=== PATIENT | female | born 1950 | race Caucasian/White ===

== ENCOUNTER → 2024-01-09 06:36 | Day surgery (SDC) | payer MEDICARE, SELFPAY | LOC: GI 06:36 | PROVIDERS: ATTENDING PHYSICIAN Specialist; FAMILY PHYSICIAN Family Medicine | DX: D12.3 Benign neoplasm of transverse colon (principal); R19.5 Other fecal abnormalities; K57.30 Diverticulosis of large intestine without perforation or abscess without bleeding | CPT/HCPCS: 45385; 88305 ==

== ENCOUNTER → 2024-06-08 09:46 | Outpatient (REF) | payer MEDICARE, SELFPAY | LOC: HWWDC 09:46 | PROVIDERS: ATTENDING PHYSICIAN Family Medicine; REFERRING PHYSICIAN Obstetrics & Gynecology | DX: Z12.31 Encounter for screening mammogram for malignant neoplasm of breast (principal) | CPT/HCPCS: 77063; 77067 ==

== ENCOUNTER → 2024-06-16 09:28 | Outpatient (REF) | payer MEDICARE, SELFPAY | LOC: RST 09:28 | PROVIDERS: ATTENDING PHYSICIAN Family Medicine | DX: R13.10 Dysphagia, unspecified (principal) | CPT/HCPCS: 74230; 92611 ==

== ENCOUNTER 2025-04-16 06:35 | Emergency (ER) | payer MEDICARE, SELFPAY ==
[2025-04-16 06:37] VITALS: BP 149/88
[2025-04-16 07:34] VITALS: BP 150/86
--- NOTE | 2025-04-16 07:37 | ED.GENMED ---
History of Present Illness
General
Chief Complaint: Musculo-Skeletal Complaint
Source: patient
Time Seen by Provider: 04/16/25 07:07
History of Present Illness
History of Present Illness:
74-year-old female with past medical history of hypertension and osteoarthritis/rheumatoid arthritis presenting to the emergency department for evaluation of approximately 1 week of gradually worsening right shoulder/neck pain described to be a
waxing and waning sharp stabbing pain lasting only a few seconds, seemingly worse with movement or laying on her right side, somewhat relieved when sitting still and sitting upright, worse yesterday which is what ultimately prompted her to come to
the ER this morning. Patient states that she takes daily diclofenac as part of her treatment plan for her arthritis but states due to mild chronic kidney disease she is not able to take any other anti-inflammatory medications at this time. She
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 She denies any
fevers, chills, rigors focal weakness or numbness, chest pain or shortness of breath or any other concerns presently.
Past History
Past History
ED Past Medical History: HTN, Psychiatric and Other (OA/RA)
ED Past Surgical History: Gynecological and Other (hysterectomy)
Social History
Tobacco: Non-smoker
Alcohol: None
Drug: None
Personal: Single
Living: alone
Review of Systems
Review of Systems
All Other Systems: ROS reviewed and negative except as documented in HPI and ROS
Phy Exam
Physical Exam
Physical Exam:
GENERAL: Alert , in no apparent distress at rest however will intermittently have the sharp pain while taking history from the patient causing her significant discomfort
EYE: conjunctiva clear
Head: Normocephalic atraumatic
NECK: Supple, no focal midline tenderness and patient did report some relief with palpation of the right trapezius muscle. Full range of motion however she did have some discomfort with right lateral rotation and right lateral bend
ENT: mmm.
LUNGS: no acute respiratory distress
NEUROLOGICAL: Alert and oriented
SKIN: Warm and dry, skin intact. No overlying rash
MUSCULOSKELETAL: well perfused. Full range of motion of the right shoulder, elbow, wrist and digits. Intact and equal radial pulse. Sensation grossly intact to light touch.
PSYCH: Normal and appropriate interaction.
Scores
Heart Failure Risk
Heart Failure Risk Score: Not Applicable
Heart Score for Chest Pain Patients
STEMI patient?: Not applicable
Withdrawal Assessment of Alcohol
Withdrawal Assessment Completed?: Not applicable
Course
Orders/Labs/Results
Orders:
Orders
04/16/25 07:33
CR Cervical Spine 4 Or 5 Vw Urgent
Comment:
Reason For Exam: pain
CR Shoulder - Right Min 2 View Urgent
Comment:
Reason For Exam: pain
Vital Signs
Initial and Last Documented VS:
Initial Vital Signs
Temp Pulse Resp BP Pulse Ox
97.9 F 65 16 149/88 94
04/16/25 06:37 04/16/25 06:37 04/16/25 06:37 04/16/25 06:37 04/16/25 06:37
Last Documented Vital Signs
Temp Pulse Resp BP Pulse Ox
97.9 F 65 15 150/86 95
04/16/25 06:37 04/16/25 07:34 04/16/25 07:34 04/16/25 07:34 04/16/25 07:44
MDM/Problems Addressed
Differential Diagnosis Includes:
Cervical radiculopathy
Shoulder impingement syndrome
Rotator cuff injury
Tendinitis
Brachial plexus injury
Less concern for fracture given no trauma
Overuse injury
Based off history and physical exam I am less concerned for any ACS/PE/dissection
MDM/Problems Addressed:
74-year-old female with past medical history of OA/RA presenting to the ER for right upper extremity pain gradually worsening over the last week, worse yesterday into today. Exam reveals more of a spasmodic nature to the pain. Patient had
ultimately hoped for more advanced imaging but given lack of focal neuro findings, no indication for emergent MRI. Patient expressed understanding. Will obtain XR imaging of the c-spine and right shoulder. Discussed pain management including
steroid taper and muscle relaxer to which patient is in agreement with. Would likely need outpatient follow-up with Ortho and will refer patient to [facility] orth[facility] as she has family member who has seen them in the past. Anticipate
discharge home.
*Radiology
Radiology exam reviewed: preliminary read by ED provider (Mild degenerative changes)
*Pulse Oximetry
SaO2: 95
Oxygen Mode of Delivery: Room air
Patient hypoxic: no
*Critical Care Note
Total Time (30-74mins, 75-104mins- exclusive of procedures): Not Applicable
Patient Management
Escalation/DeEscalation of care consider admission/obs:
Patient stable for discharge home aware of return precautions to the ER. Prescription for Medrol Dosepak and muscle relaxant provided. Patient will follow-up with outpatient orthopedics as needed.
ED Attending Note
-
Portions of this chart may have been created with voice recognition software.� Occasional wrong word or��sound alike� substitutions may have occurred due to the inherent limitations of voice recognition software.
Discharge Plan
Departure
Patient Disposition: Home (Routine Discharge)
Date of Disposition: 04/16/25
Time of Disposition: 08:09
Patient with high blood pressure during this ER visit?: Yes
Discharge Problem:
Radiculopathy affecting upper extremity
Instructions: Radiculopathy of the neck and back (including sciatica) - Discharge instruc
Prescriptions:
New
methylprednisolone [Medrol (Bharathi)] 4 mg tablets,dose pack
4 mg PO DIRECTED Qty: 21 0RF
diazepam [Valium] 5 mg tablet
5 mg PO BID PRN (Reason: muscle spasm) Qty: 8 0RF
No Action
omeprazole 40 MG capsule,delayed release(DR/EC)
40 mg PO DAILY Qty: 14 0RF
Referrals:
Burton Crockett MD [Active, Orthopedics]
Margaret Gayle DO [Family Provider, Family Practice]
Interventions
Interventions:
*Risk Screen - Suicide Last Done: 04/16/25 06:37
*General Assessment Last Done: 04/16/25 06:37
*Neglect/Abuse Screening Last Done: 04/16/25 06:37
*ED- Fall Risk Assessment Last Done: 04/16/25 06:37
*ED COVID-19 Vaccine History Last Done: 04/16/25 06:42
*Nursing Disposition Last Done: 04/16/25 08:18
ED-Musculoskeletal Assessment Last Done: 04/16/25 07:07
Discharge Date and Time
Discharge Date/Time: 04/16/25 08:23
Print Language: BENINESE
== END 2025-04-16 08:23 | disposition home or self-care (01) ==
LOC: EMR 06:35
PROVIDERS: EMERGENCY PHYSICIAN Emergency Medicine; FAMILY PHYSICIAN Family Medicine
DX: M54.10 Radiculopathy, site unspecified (principal); M06.9 Rheumatoid arthritis, unspecified; I12.9 Hypertensive chronic kidney disease with stage 1 through stage 4 chronic kidney disease, or unspecified chronic kidney disease; N18.9 Chronic kidney disease, unspecified; Z90.710 Acquired absence of both cervix and uterus
CPT/HCPCS: 99283; 72050; 73030

== ENCOUNTER → 2025-04-26 06:54 | Outpatient (REF) | payer MEDICARE, SELFPAY | LOC: MRI 06:54 | PROVIDERS: ATTENDING PHYSICIAN Physician Assistant; FAMILY PHYSICIAN Family Medicine | DX: M54.12 Radiculopathy, cervical region (principal) | CPT/HCPCS: 72141 ==